=== PATIENT | female | born 1970 | race Two or more races ===

== ENCOUNTER → 2019-11-16 | Outpatient (CLI) | payer OTHER ==
--- NOTE | 2019-11-16 15:54 | RAD ---
EXAM: Bilateral digital screening mammogram with tomosynthesis. HISTORY: 49-year-old female presents for screening mammography. TECHNIQUE: Full-field digital craniocaudal and mediolateral oblique standard and breast implant displaced 2D and 3D tomosynthesis images of both breasts are obtained for evaluation. Computer aided detection with [employer] software version 9.3 was applied. COMPARISON: The images corresponding with studies performed 02/26/2012 and 02/27/2011 are not available for comparison. BREAST PARENCHYMAL DENSITY: Level B - Scattered fibroglandular densities. FINDINGS: There is a nodular density within the 12:30 to 1:00 position of the left breast at mid depth. There is a smaller nodular density within the suspected 10:00 subareolar aspect of the right breast. No architectural distortion or suspicious calcification is seen. IMPRESSION: BI-RADS Category 0: Incomplete. Additional imaging needed. RECOMMENDATION: Further evaluation with a bilateral breast sonogram is recommended to assess areas of nodularity at the 12:30 to 1:00 position of the left breast and 10:00 subareolar aspect of the right breast. If your mammogram demonstrates that you have dense breast tissue, which could hide abnormalities, and if you have other risk factors for breast cancer that have been identified, you might benefit from supplemental screening tests that may be suggested by your ordering physician. Dense breast tissue, in and of itself, is a relatively common condition. This information is not provided to cause undue concern, but rather to raise your awareness and to promote discussion with your physician regarding the presence of other risk factors, in addition to dense breast tissue. A report of your mammography results will be sent to you and your physician. You should contact your physician if you have any questions or concerns regarding this report. Mammography is a sensitive method for finding small breast cancers, but it does not detect them all and is not a substitute for careful clinical examination. A negative mammogram does not negate a clinically suspicious finding and should not result in delay in biopsying a clinically suspicious abnormality. PQRS compliance statement - Patient information was entered into a reminder system with a target due date for the next mammogram. "Our facility is accredited by the [employer] Mammography [employer]." Electronically signed by: Haylie Lam MD (11/16/2019 3:51 PM) [id number]
== END | disposition home or self-care (01) ==
LOC: MAMMO 13:42
PROVIDERS: ATTEND Nurse Practitioner Family
DX: Z12.31 Encounter for screening mammogram for malignant neoplasm of breast (principal); N64.89 Other specified disorders of breast
CPT/HCPCS: 77063; 77067

== ENCOUNTER → 2019-12-02 | Outpatient (CLI) | payer OTHER ==
--- NOTE | 2019-12-02 16:28 | RAD ---
Examination: Limited bilateral breast ultrasound. INDICATION: 49-year-old woman recalled from screening for bilateral nodular densities. COMPARISON: 11/16/2019, 01/25/2016, 02/26/2012, 02/27/2011. TECHNIQUE: Grayscale ultrasound of the left and right breasts in the areas of mammographic interest was performed, with color Doppler imaging. FINDINGS: Right breast: Targeted ultrasound of the subareolar right breast at the approximate 10:00 position identified a sonographically simple cyst measuring 3 mm at the 9:30 o'clock position that likely correlates with the mammographic finding recalled from screening. It is sonographically benign and there are no suspicious findings in the right breast on targeted ultrasound. This is considered benign and right breast is recommended for return to routine screening. Sonographic survey right axilla revealed no adenopathy. Left breast: Targeted ultrasound of the reported area of mammographic interest at the left 12:30 o'clock position identified at the 12:30 o'clock position 6 cm from the nipple an oval parallel orientation hypovascular mass with low-level internal echoes, favored to represent a cluster of cysts. This is considered probably benign and recommended for six-month follow-up targeted left breast ultrasound. Sonographic survey left axilla revealed no adenopathy. IMPRESSION: 1. Benign cyst in the subareolar right breast. Right breast recommended to return to routine mammographic screening. 2. Probably benign cluster of cysts at the left 12:30 o'clock position 6 cm from the nipple. Six-month follow-up targeted left breast ultrasound recommended. BI-RADS Category 3 Probably benign findings Six-month follow-up left breast ultrasound recommended.
== END | disposition home or self-care (01) ==
LOC: US 14:24
PROVIDERS: ATTEND Nurse Practitioner Family
DX: R92.8 Other abnormal and inconclusive findings on diagnostic imaging of breast (principal); N60.01 Solitary cyst of right breast; N63.21 Unspecified lump in the left breast, upper outer quadrant
CPT/HCPCS: 76641-50

== ENCOUNTER → 2020-09-06 | Outpatient (CLI) | payer OTHER ==
--- NOTE | 2020-09-06 11:35 | RAD ---
EXAM: Left breast sonogram. HISTORY: 49-year-old female presents for follow-up evaluation of findings within the left breast demo nstrated on a sonogram dated 12/02/2019. TECHNIQUE: Sonographic imaging of the left breast targeted to the site of prior sonographic findings was performed. COMPARISON: 12/02/2019. FINDINGS: There has been no change in an 8 x 5 x 3 mm nonvascular hypoechoic lesion at the 12:30 posi tion 6 cm from the nipple, the appearance of which favors a cluster of microcysts. No new lesion is s een. IMPRESSION: 1. Stable 8 mm suspected cluster of microcysts at the 12:30 position. There is no new suspicious sono graphic finding. 2. BI-RADS Category 2: Benign finding(s). The patient will be due for bilateral mammography in 2 darron hs according to a previously established mammography interval. Electronically signed by: Haylie Lam MD (09/06/2020 11:33 AM) [id number]
== END ==
LOC: US 11:08
PROVIDERS: ATTEND Nurse Practitioner Family
DX: R92.8 Other abnormal and inconclusive findings on diagnostic imaging of breast (principal)
CPT/HCPCS: 76641